=== PATIENT | female | born 1970 | race Caucasian/White ===

== ENCOUNTER 2018-02-26 14:29 | Emergency (ER) | payer SELFPAY ==
[~2018-02-26] VITALS: Ht 172.7 cm; Wt 86.4 kg
[~2018-02-26 14:29] MED LIST: DEXTROAMPHETAMINE; EPIPEN 2-PAK1 MG/ML IM
[2018-02-26 14:35] VITALS: TEMP 98.3
[2018-02-26 15:26] VITALS: BP 176/110; PULSE 67
== END 2018-02-26 15:49 | disposition home or self-care (01) ==
LOC: COL.ER 14:29
DX: S01.21XA Laceration without foreign body of nose, initial encounter (principal); F90.9 Attention-deficit hyperactivity disorder, unspecified type; Z23 Encounter for immunization; Z98.890 Other specified postprocedural states; W22.8XXA Striking against or struck by other objects, initial encounter; Y92.89 Other specified places as the place of occurrence of the external cause

== ENCOUNTER 2018-04-24 11:48 | Outpatient (RCR) | payer OTHER | END 2018-06-16 | disposition home or self-care (01) | LOC: WSOH | DX: S00.83XA Contusion of other part of head, initial encounter (principal); F07.81 Postconcussional syndrome; W22.8XXA Striking against or struck by other objects, initial encounter; Y93.F9 Activity, other caregiving; Y92.811 Bus as the place of occurrence of the external cause; Y99.0 Civilian activity done for income or pay; Z79.82 Long term (current) use of aspirin; Z79.899 Other long term (current) drug therapy ==